=== PATIENT | male | born 1970 | race Caucasian/White ===

== ENCOUNTER 2020-10-01 02:02 | Outpatient (CLI) | payer OTHER, SELFPAY ==
[2020-10-01 20:00] LABS: SARS-CoV-2 RNA PCR Negative
== END 2020-10-01 02:03 | disposition home or self-care (01) ==
LOC: ANHCOVIDDT 02:02
PROVIDERS: PCP Internal Medicine; Visit Provider Internal Medicine Gastroenterology
DX: Z01.812 Encounter for preprocedural laboratory examination (principal); Z20.828 Contact with and (suspected) exposure to other viral communicable diseases
CPT/HCPCS: 87635; C9803; U0003

== ENCOUNTER 2020-10-04 01:20 | Day surgery (SDC) | payer OTHER, SELFPAY ==
[2020-09-28 08:36] VITALS: BMI 29.5
[2020-10-04 08:25] VITALS: BP 131/90; PULSE 93; RESP 18; TEMP 36.6; O2SAT 96; BMI 29.0
[2020-10-04] MEDS: LACTATED RINGERS 1,000 ML 150 ML IV CONT (08:33)
--- NOTE | 2020-10-04 08:35 | WPDANESEPPF ---
Anes - Initial Pre Proc Eval Procedure: Operation Date: 10/04/20 09:30 Proposed Procedures p Screening Colonoscopy - Robbie Bermudez MD Date/Time: 10/04/20 08:35 Surgeon: Robbie Bermudez MD Pre Op Diagnosis: Neoplasm Screening Patient Data Age: 50 Gender: M Height: 1.75 m Weight: 89 kg Last Vital Signs Temp 36.6 C 10/04/20 08:25 Pulse 93 10/04/20 08:25 Resp 18 10/04/20 08:25 BP 131/90 10/04/20 08:25 Pulse Ox 96 10/04/20 08:25 Allergies Allergy/AdvReac Type Severity Reaction Status Date / Time No Known Allergies Allergy Verified 10/04/20 08:24 Home Medications Medication Instructions Recorded Confirmed Type peg 3350-electrolytes 236 240 ml PO Q10M #4000 ml 08/12/20 Rx gram-22.74 gram-6.74 gram-5.86 gram solution sodium,potassium,mag sulfates 17.5 480 ml PO .COMPLEX #480 ml 08/12/20 Rx gram-3.13 gram-1.6 gram oral soln Patient hx anesthesia problems: none Family hx anesthesia problems: none PMFSH Past Medical History Medical History (Updated 10/04/20 @ 08:36 by Nicho Calvo MD) Asthma Chronic GERD CONNOR (obstructive sleep apnea) Overweight (BMI 25.0-29.9) Family History Family History Mother Patient's mother is in good health Father Carcinoma of colon Sibling Family history of lung cancer Social History Social History Smoking packs per day: 1.5 Smoking cigarettes per day: 30.0 Years smoked: 5 Smoking pack-years: 7.50 Smoking status: Former smoker Tobacco type: cigarettes Second hand tobacco smoke exposure: No Alcohol intake: current Drinks per week: 14 Substance use: never Substance use type: does not use Living arrangements: with family Spiritual care concerns: No Anes - Eval Final PreProcedure Day of Procedure 10/04/20 08:35 Patient weight: overweight Heart: regular rate and rhythm Lungs: clear to auscultation and normal air movement Airway: Mallampati scale class II Neurological: alert and oriented Last oral intake: >/= 8 hours ASA classification: II Emergent: no Anesthetic plan: proceed Anesthesia type and monitoring: general GIVS Informed Consent: The patient's anesthetic plan and its attendant risks and benefits were discussed with the patient/family/POA. Questions were solicited and answers provided to the satisfaction of the patient/family/POA.
--- NOTE | 2020-10-04 09:33 | PM.HPGS ---
History of Present Illness History of Present Illness Consent: Risks, benefits, and alternatives have been discussed and questions answered. Patient agrees to proceed with procedure. Chief complaint: Neoplasm Screening Narrative: Jesus Alberto Rollins is a 50 year old male here for first screening colonoscopy, father had colon cancer at his mid 70's Review of Systems Constitutional: Constitutional: Denies headache(s) and Denies weakness Eyes: Eyes: Denies blurry vision ENT: Reports Normal hearing present, Denies headache(s) and Denies neck pain Cardiovascular: Cardiovascular: Denies chest pain and Denies dyspnea Respiratory: Respiratory: Denies dyspnea Gastrointestinal: Gastrointestinal: Reports no additional gastrointestinal complaints Genitourinary: Genitourinary: Denies dysuria Musculoskeletal: Musculoskeletal: Denies neck pain Integumentary/Breasts: Skin/Breast: Denies dry skin Neurologic: Reports Normal hearing present, Denies headache(s) and Denies weakness Psychiatric: Psychiatric: Denies anxiety Endocrine: Endocrine: Denies change in body appearance Hematologic/Lymphatic: Hematologic/Lymphatic: Denies easy bleeding Allergic/Immunologic: Allergic/Immunologic: Denies urticaria PMF Past Medical History Medical History (Updated 10/04/20 @ 09:34 by Robbie Bermudez MD) Asthma Chronic GERD Family history of colon cancer in father CONNOR (obstructive sleep apnea) Overweight (BMI 25.0-29.9) Family History Family History Mother Patient's mother is in good health Father Carcinoma of colon Sibling Family history of lung cancer Social History Social History Smoking packs per day: 1.5 Smoking cigarettes per day: 30.0 Years smoked: 5 Smoking pack-years: 7.50 Smoking status: Former smoker Tobacco type: cigarettes Second hand tobacco smoke exposure: No Alcohol intake: current Drinks per week: 14 Substance use: never Substance use type: does not use Living arrangements: with family Spiritual care concerns: No Meds Home Medications and Allergies Home Medications Medication Instructions Recorded Confirmed Type peg 3350-electrolytes 236 240 ml PO Q10M #4000 ml 08/12/20 Rx gram-22.74 gram-6.74 gram-5.86 gram solution sodium,potassium,mag sulfates 17.5 480 ml PO .COMPLEX #480 ml 08/12/20 Rx gram-3.13 gram-1.6 gram oral soln Allergies Allergy/AdvReac Type Severity Reaction Status Date / Time No Known Allergies Allergy Verified 10/04/20 08:24 Vital Signs Vital Signs - 24 hr 10/04/20 08:25 Temperature 98 F Pulse Rate 93 Respiratory Rate 18 Blood Pressure 131/90 Pulse Oximetry 96 Exam Const: General: comfortable and no acute distress HENMT: General nose exam: Normal nares present Eyes: General: appearance normal, both eyes and all related structures Neck: Neck: no JVD Resp: Auscultation: clear to auscultation bilaterally Cardio: Rate: regular rate Rhythm: regular rhythm GI: Inspection: non-distended GI Palp: Yes Soft to palpation Skin: General skin exam: normal color Neuro: General: gait normal Speech: normal speech Extrem: General: normal to inspection Psych: Mental Status: mental status grossly normal Assessment and Plan Assessment and plan (1) Family history of colon cancer in father: Code(s): Z80.0 - Family history of malignant neoplasm of digestive organs Status: Acute Assessment and Plan: will proceed with colonoscopy
[2020-10-04 10:03] VITALS: BP 121/83; PULSE 81; RESP 18; O2SAT 96
[2020-10-04 10:13] VITALS: BP 131/93; PULSE 78; RESP 20; O2SAT 99
[2020-10-04 10:23] VITALS: BP 148/100; PULSE 80; RESP 18; O2SAT 100
[2020-10-04 10:46] LABS: Hematocrit 47.6 % (42.0-52.0); Hemoglobin 16.7 g/dL (14.0-18.0); Mean Corpuscular HGB Conc 35.1 g/dl (32-36); Mean Corpuscular Hemoglobin 31.2 pg (26-34); Mean Corpuscular Volume 88.8 fl (80-100); Mean Platelet Volume 9.3 fl (7.4-10.4); Platelet Count Result 256 k/mm3 (150-375); Red Blood Count 5.36 M/mm3 (4.6-6.20); Red Cell Distribution Width 12.2 % (11.5-14.5)
[2020-10-04 11:01] LABS: Alanine Aminotransferase 31 U/L (4-50); Albumin Level 4.1 g/dL (3.5-5.1); Alkaline Phosphatase 60 U/L (38-126); Anion Gap 5 mmol/L (8-16); Aspartate Amino Transferase 37 U/L (17-59); Bilirubin,Total 0.9 mg/dL (0.2-1.3); Blood Urea Nitrogen 11 mg/dL (9-20); Calcium 9.1 mg/dL (8.4-10.2); Carbon Dioxide 31 mmol/L (22-30); Chloride 103 mmol/L (98-107); Estimated CRCL calculation 60 ml/min; Estimated Glomerular Filt Rate 58; Glucose 93 mg/dL (75-110); Potassium 4.1 mmol/L (3.4-5.0); Sodium 139 mmol/L (137-145)
[2020-10-04 11:29] LABS: Carcinoembryonic Antigen 2.5 ng/mL (0.0-3.0)
== END 2020-10-04 10:50 | disposition home or self-care (01) ==
PROVIDERS: PCP Internal Medicine; Visit Provider Internal Medicine Gastroenterology
PROC: 0DJD8ZZ Inspection of Lower Intestinal Tract, Via Natural or Artificial Opening Endoscopic (ICD-10-PCS; CPT 45378; principal; 2020-10-04 09:30)
DX: Z12.11 Encounter for screening for malignant neoplasm of colon (principal); C18.7 Malignant neoplasm of sigmoid colon; K63.5 Polyp of colon; K64.8 Other hemorrhoids; Z80.0 Family history of malignant neoplasm of digestive organs; K21.9 Gastro-esophageal reflux disease without esophagitis; G47.33 Obstructive sleep apnea (adult) (pediatric); J45.909 Unspecified asthma, uncomplicated; Z87.891 Personal history of nicotine dependence
CPT/HCPCS: 45385; 45380; 45381; 36415; 80053; 82378; 85027; 87635; 88305; C9803; J2704; J7120; U0003

== ENCOUNTER 2020-10-19 14:03 | Outpatient (CLI) | payer OTHER, SELFPAY ==
--- NOTE | ~2020-10-19 | CT_ITS ---
EXAMINATION: CT abdomen pelvis w con DATE: 10/19/2020 14:28 INDICATION: Recent diagnosis of colon cancer TECHNIQUE: Computed tomography (CT) of the abdomen and pelvis was performed with 100 cc Omnipaque 350 intravenous contrast. Automated exposure control and iterative reconstruction technique were employe d. Exam dose: 621.58 mGy-cm total exam DLP. COMPARISON: 01/12/2017 CT abdomen pelvis FINDINGS: The lung bases are clear of infiltrate or consolidation. Normal heart size. No pericardial or pleural effusion. Very small sliding hiatal hernia. Diffuse hepatic steatosis. The liver, gallbladder, bile ducts, spleen, pancreas, pancreatic duct, and adrenal glands and kidneys appear otherwise normal. Normal caliber of the abdominal aorta. No intraperitoneal or retroperitonea l or pelvic mass lesion or adenopathy or ascites. Normal appendix. No bowel obstruction, bowel wall thickening, pneumatosis or intraperitoneal free air is detected. The urinary bladder is unremarkable. Mild prostate enlargement and calcification. Small fat-containing left inguinal hernia. Included skeletal structures are unremarkable.; No suspicious osteolytic or osteoblastic lesions. IMPRESSION: No metastatic disease is identified Hepatic steatosis Very small sliding hiatal hernia Reviewed, dictated and finalized at [facility]. Reviewed, dictated and finalized at [facility]. [employer]
== END 2020-10-19 14:04 | disposition home or self-care (01) ==
PROVIDERS: PCP Internal Medicine; Visit Provider Nurse Practitioner Family
DX: K63.89 Other specified diseases of intestine (principal); K76.0 Fatty (change of) liver, not elsewhere classified; K44.9 Diaphragmatic hernia without obstruction or gangrene
CPT/HCPCS: 74177; Q9967

== ENCOUNTER 2021-07-18 13:51 | Outpatient (CLI) | payer OTHER, SELFPAY ==
--- NOTE | ~2021-07-18 | XR_ITS ---
XR chest 2V DATE: 07/18/2021 14:12 INDICATION: Cough TECHNIQUE: PA and lateral views COMPARISON: 10/19/2020 CT abdomen pelvis FINDINGS: Right internal jugular central venous catheter tip is situated overlying the upper right at rium. Normal heart size. There is patchy infiltrate in the mid and lower lung zones, left greater than right. No pleural effusion or pulmonary vascular congestion or pneumothorax. Diffuse osteopenia. IMPRESSION: Mild patchy infiltrate in the mid and lower lung zones, left greater than right Reviewed, dictated and finalized at [facility]. IMPRESSION: Mild patchy infiltrate in the mid and lower lung zones, left greate r than right
== END 2021-07-18 13:52 | disposition home or self-care (01) ==
PROVIDERS: PCP Internal Medicine; Visit Provider Family Medicine
DX: R05.9 Cough, unspecified (principal); R91.8 Other nonspecific abnormal finding of lung field
CPT/HCPCS: 71046

== ENCOUNTER 2021-08-05 08:40 | Outpatient (CLI) | payer OTHER, SELFPAY ==
--- NOTE | ~2021-08-05 | XR_ITS ---
XR chest 2V 08/05/2021 08:59 Indication: Pneumonia. Dyspnea. Procedure: PA and lateral views of the chest Comparison: 07/18/2021 Findings: Patchy infiltrates of the left mid and lower lung zone, compatible with pneumonia. Heart si ze normal. Right lung clear. Portacatheter tip in the SVC. No pleural effusion or pneumothorax. No ac gabby osseous abnormality. Impression: 1: Patchy left-sided infiltrates, compatible with pneumonia. No significant interval change. Reviewed, dictated and finalized at location [facility]. Impression: 1: Patchy left-sided infiltrates, compatible with pneumonia. No significant int erval change.
== END 2021-08-05 08:41 | disposition home or self-care (01) ==
LOC: ANHIMG 08:43
PROVIDERS: PCP Internal Medicine; Visit Provider Internal Medicine
DX: J98.11 Atelectasis (principal)
CPT/HCPCS: 71046

== ENCOUNTER 2023-01-22 08:06 | Outpatient (CLI) | payer BC, SELFPAY ==
[2023-01-22 20:39] LABS: Alanine Aminotransferase 39 U/L (6-50); Albumin Level 4.2 g/dL (3.5-5.1); Alkaline Phosphatase 70 U/L (38-126); Anion Gap 5 mmol/L (8-16); Aspartate Amino Transferase 45 U/L (17-59); Blood Urea Nitrogen 14 mg/dL (9-20); Calcium 8.9 mg/dL (8.4-10.2); Carbon Dioxide 32 mmol/L (22-30); Chloride 102 mmol/L (98-107); Cholesterol 212 mg/dL (0-200); Estimated Glomerular Filt Rate > 60; Glucose 87 mg/dL (65-110); HDL Direct 33 mg/dL; Potassium 4.5 mmol/L (3.4-5.0); Sodium 139 mmol/L (137-145); Triglycerides 164 mg/dL (<150)
[2023-01-22 20:50] LABS: LDL Cholesterol Direct 143 mg/dL
[2023-01-22 22:29] LABS: Total Triiodothyronine (T3) 1.38 NG/ML (0.97-1.69)
== END 2023-01-22 08:07 | disposition home or self-care (01) ==
LOC: ANHGOSHLAB 08:07
PROVIDERS: PCP Family Medicine; Visit Provider Family Medicine
DX: E78.2 Mixed hyperlipidemia (principal); E03.9 Hypothyroidism, unspecified; Z13.228 Encounter for screening for other metabolic disorders
CPT/HCPCS: 36415; 80053; 80061; 84439; 84443; 84480

== ENCOUNTER 2023-03-05 16:17 | Outpatient (CLI) | payer BC, SELFPAY ==
[2023-03-05 20:27] LABS: Free T4 Free Thyroxine Reflex 1.04 ng/dL (0.78-2.19)
[2023-03-05 21:21] LABS: Total Triiodothyronine (T3) 1.36 NG/ML (0.97-1.69)
== END 2023-03-05 16:18 | disposition home or self-care (01) ==
LOC: ANHGOSHLAB 16:18
PROVIDERS: PCP Family Medicine; Visit Provider Family Medicine
DX: Z13.29 Encounter for screening for other suspected endocrine disorder (principal)
CPT/HCPCS: 36415; 84439; 84443; 84480

== ENCOUNTER 2023-06-12 08:41 | Outpatient (CLI) | payer BC, SELFPAY ==
[2023-06-12 16:20] LABS: Prostate Specific Antigen 0.6 ng/mL (< OR = 4.0)
== END 2023-06-12 08:42 | disposition home or self-care (01) ==
LOC: ANHGOSHLAB 08:42
PROVIDERS: PCP Family Medicine; Visit Provider Family Medicine
DX: Z12.5 Encounter for screening for malignant neoplasm of prostate (principal)
CPT/HCPCS: 36415; 84153; G0103

== ENCOUNTER 2023-11-19 08:10 | Outpatient (CLI) | payer BC, SELFPAY ==
[2023-11-19 13:48] LABS: Cholesterol 153 mg/dL (0-200); HDL Direct 34 mg/dL; Triglycerides 127 mg/dL (<150)
[2023-11-19 13:58] LABS: LDL Cholesterol Direct 92 mg/dL
== END 2023-11-19 08:11 | disposition home or self-care (01) ==
LOC: ANHGOSHLAB 08:12
PROVIDERS: PCP Family Medicine; Visit Provider Internal Medicine Cardiovascular Disease
DX: I70.0 Atherosclerosis of aorta (principal); E78.2 Mixed hyperlipidemia
CPT/HCPCS: 36415; 80061

== ENCOUNTER 2023-12-10 08:14 | Outpatient (CLI) | payer BC, SELFPAY ==
[2023-12-10 17:13] LABS: Alanine Aminotransferase 32 U/L (6-50); Albumin Level 4.3 g/dL (3.5-5.1); Alkaline Phosphatase 73 U/L (38-126); Anion Gap 10 mmol/L (8-16); Aspartate Amino Transferase 72 U/L (17-59); Bilirubin,Total 0.9 mg/dL (0.2-1.3); Blood Urea Nitrogen 13 mg/dL (9-20); Calcium 9.7 mg/dL (8.4-10.2); Carbon Dioxide 25 mmol/L (22-30); Chloride 105 mmol/L (98-107); Estimated Glomerular Filt Rate > 60; Glucose 63 mg/dL (65-110); Potassium 3.8 mmol/L (3.4-5.0); Sodium 140 mmol/L (137-145)
[2023-12-10 19:25] LABS: Total Triiodothyronine (T3) 1.36 NG/ML (0.97-1.69)
== END 2023-12-10 08:15 | disposition home or self-care (01) ==
LOC: ANHGOSHLAB 08:15
PROVIDERS: PCP Family Medicine; Visit Provider Family Medicine
DX: Z13.228 Encounter for screening for other metabolic disorders (principal); Z13.29 Encounter for screening for other suspected endocrine disorder
CPT/HCPCS: 36415; 80053; 84439; 84443; 84480

== ENCOUNTER 2024-01-17 10:19 | Outpatient (CLI) | payer BC, SELFPAY ==
[2024-01-17 14:09] LABS: Cholesterol 118 mg/dL (0-200); HDL Direct 35 mg/dL; Triglycerides 80 mg/dL (<150)
[2024-01-17 14:20] LABS: LDL Cholesterol Direct 76 mg/dL
== END 2024-01-17 10:20 | disposition home or self-care (01) ==
LOC: ANHGOSHLAB 10:21
PROVIDERS: PCP Family Medicine; Visit Provider Family Medicine
DX: E78.2 Mixed hyperlipidemia (principal); E03.9 Hypothyroidism, unspecified
CPT/HCPCS: 36415; 80061; 84443

== ENCOUNTER 2025-03-28 08:13 | Emergency (ER) | payer BC, SELFPAY ==
--- NOTE | 2025-03-28 08:44 | ED.URI ---
HPI - URI/Sore Throat General Chief Complaint: Upper Respiratory Infection Stated Complaint: COUGH/SINUS Time Seen by Provider: 03/28/25 08:44 Source: patient Mode of arrival: ambulatory Limitations: no limitations History of Present Illness HPI Narrative: 54-year-old male presents with complaint of runny nose and nasal congestion starting yesterday during the day. Thought it was ?just allergies ?. Last night started coughing. Concern for bacterial sinusitis. Not taking any [id number]-lxe-vychywr medications to treat symptoms. Afebrile. No chest pain or shortness of breath. All systems reviewed and negative except as noted above. Related Data Home Medications ?Medication ?Instructions ?Recorded ?Confirmed ?Last Taken ?Type aspirin 81 mg tablet,delayed 81 mg PO DAILY 11/29/23 12/02/24 Unknown History release (Adult Low Dose Aspirin) Allergies Allergy/AdvReac Type Severity Reaction Status Date / Time oxaliplatin Allergy Mild Chest Pain Verified 12/02/24 07:24 mold spores Allergy Intermediate tightness Uncoded 12/02/24 07:24 in chest cat dander AdvReac Intermediate Sweating Uncoded 12/02/24 07:24 Review of Systems Review of Systems: CONSTITUTIONAL: Denies fever, chills, or sweats. EYES: Denies visual changes, redness, or discharge. ENT: Reports rhinorrhea, congestion. Denies sore throat, or otalgia. CARDIOVASCULAR: Denies chest pain, palpitations, or edema. RESPIRATORY: Reports cough. Denies dyspnea. GASTROINTESTINAL: Denies abdominal pain, nausea, vomiting, or diarrhea. GENITOURINARY: Denies dysuria or hematuria. SKIN: Denies rash or itching. MUSCULOSKELETAL: Denies back pain, joint pain, or myalgia. NEUROLOGIC: Denies headache, numbness, or weakness. PSYCHIATRIC: Denies anxiety or depression. All other systems reviewed are negative, except as documented in HPI. [facility] Past Medical History Medical History (Updated 03/28/25 @ 08:55 by Sofia Loya NP) Patchy atelectasis Right-sided Tompkins's palsy Mass of colon Family history of colon cancer in father Overweight (BMI 25.0-29.9) Chronic GERD CONNOR (obstructive sleep apnea) Asthma Family History Family History Mother Patient's mother is in good health Father Carcinoma of colon Sibling Family history of lung cancer Social History Social History Smoking packs per day: 1.5 Smoking cigarettes per day: 30.0 Years smoked: 5 Smoking pack-years: 7.50 Smoking status: Former smoker Tobacco type: cigarettes Second hand tobacco smoke exposure: No Alcohol intake: current Drinks per week: 10 Alcohol use details: Beer Substance use: never Substance use type: does not use Do You Feel Safe in your Home?: Yes Lack of Transportation: No Lack of Food: Never True Current Housing: I Have Housing Concerned About Future Housing: No Difficulty Paying Gas/Electric Bills: No Difficulty Paying for Meds: No Currently Unemployed: No Education: Bachelor's Degree Difficulty w/ Childcare or Family Care: No Living arrangements: with family Spiritual care concerns: No Comments At time of signature, agree with nursing past medical, surgical, social and family history. There is no relevant family history pertinent to the presenting complaint. Exam Narrative: GENERAL: This is a well-nourished, well-developed patient, ill-appearing but in no acute distress HEAD: normocephalic, atraumatic. EYES: PERRL. Sclera clear/white. Vision is grossly intact. EARS: External ears normal, auditory canals clear and without drainage, TMs normal without perforation. Hearing grossly intact. NOSE: External nose normal with erythema to bilateral nares without significant swelling, clear nasal drainage THROAT: Mucous membranes moist, posterior pharynx clear. NECK: Neck supple, non-tender without lymphadenopathy, masses or thyromegaly. CARDIOVASCULAR: Regular rate and rhythm without murmurs, gallops, or rubs. RESPIRATORY: Clear to auscultation. Breath sounds equal bilaterally. No wheezes, rales, or rhonchi. SKIN: warm, Dry, intact with no suspicious lesions or rash, good texture and turgor. NEURO: awake, alert, and oriented to person, place and time. There were no obvious focal neurologic abnormalities. EXTREMITIES: No joint tenderness, effusion, or edema noted. Course Course Level of Care: Express Care Visit Vital Signs Vital signs: Reviewed MDM - URI/Sore Throat MDM Narrative Medical decision making narrative: Negative COVID and influenza. Lungs clear to auscultation. Symptoms for less than 24 hours. Recommend [id number] medications to treat viral URI. Patient is well-appearing, nontoxic. Differential Diagnosis Differential diagnosis: Likely upper respiratory infection, sinusitis, viral infection and influenza Discharge Plan Discharge Clinical Impression: Viral upper respiratory tract infection with cough Patient Disposition: Home Condition: Stable Instructions: Upper Respiratory Infection (ED) Additional Instructions: Your COVID test was negative today. Your symptoms are viral and may last 10-14 days. Take Medrol Dosepak as prescribed. Start an lnsz-vam-ilsruop medication to treat her symptoms such as DayQuil NyQuil cold and Sinus. Drink at least 64 oz of water a day. Place a cool-mist humidifier in bedroom where you sleep. See your primary care physician if symptoms are not improving. Patient Language: Ecuadorean Prescriptions: New methylprednisolone [Medrol (Jose Guadalupe)] 4 mg tablets,dose pack See Rx Instructions PO .COMPLEX Qty: 21 0RF Rx Instructions: orally per package directions No Action simvastatin 20 mg tablet 20 mg PO DAILY Qty: 90 1RF aspirin [Adult Low Dose Aspirin] 81 mg tablet,delayed release (DR/EC) 81 mg PO DAILY pregabalin [Lyrica] 75 mg capsule 75 mg PO BID Qty: 60 2RF levothyroxine 75 mcg tablet 75 mcg PO DAILY Qty: 90 1RF Follow-up/Referrals: Mervat Hernandez APRN [Primary Care Provider] - Time of Disposition: 08:56
[2025-03-28 08:57] VITALS: BP 115/82; PULSE 92; RESP 18; TEMP 37.4; O2SAT 96
[2025-03-28 09:10] LABS: EDCOVIDSCREEN Negative (Negative); EDINFLUASCREEN Negative (Negative); EDINFLUBSCREEN Negative (Negative)
== END 2025-03-28 09:11 | disposition home or self-care (01) ==
PROVIDERS: Emergency Provider Nurse Practitioner Family; PCP Nurse Practitioner Family
DX: J06.9 Acute upper respiratory infection, unspecified (principal); R05.9 Cough, unspecified; Z20.822 Contact with and (suspected) exposure to COVID-19; Z87.891 Personal history of nicotine dependence; K21.9 Gastro-esophageal reflux disease without esophagitis; J45.909 Unspecified asthma, uncomplicated; Z79.82 Long term (current) use of aspirin
CPT/HCPCS: 87426; 87804; 99213; G0463